=== PATIENT | male | born 1980 | race Caucasian/White ===

== ENCOUNTER 2016-08-28 11:31 | Outpatient (CLI) | payer MEDICAID | END 2016-08-28 11:32 | disposition home or self-care (01) | DX: G47.30 Sleep apnea, unspecified (principal); G47.8 Other sleep disorders; R06.83 Snoring; G47.10 Hypersomnia, unspecified ==

== ENCOUNTER 2016-10-17 10:09 | Outpatient (CLI) | payer MEDICAID | END 2016-10-17 10:10 | disposition home or self-care (01) | DX: G47.33 Obstructive sleep apnea (adult) (pediatric) (principal) ==

== ENCOUNTER 2016-11-27 13:23 | Outpatient (CLI) | payer MEDICAID | END 2016-11-27 13:24 | disposition home or self-care (01) | DX: G47.33 Obstructive sleep apnea (adult) (pediatric) (principal) ==

== ENCOUNTER 2016-12-13 13:45 | Outpatient (CLI) | payer MEDICAID | END 2016-12-13 13:46 | disposition home or self-care (01) | DX: Z79.899 Other long term (current) drug therapy (principal) ==

== ENCOUNTER 2018-03-18 14:15 | Outpatient (CLI) | payer MEDICAID, OTHER | END 2018-03-18 14:16 | disposition home or self-care (01) | LOC: LAB.N 14:15 | PROVIDERS: ATTEND Nurse Practitioner Gerontology | DX: Z91.018 Allergy to other foods (principal); J30.2 Other seasonal allergic rhinitis | CPT/HCPCS: 36415; 81599; 86001; 86003 ==